=== PATIENT | female | born 1995 | race Caucasian/White ===

== ENCOUNTER → 2020-10-27 | Outpatient (CLI) | payer OTHER | LOC: KOH-I 16:00 | DX: S92.352A Displaced fracture of fifth metatarsal bone, left foot, initial encounter for closed fracture (principal) | CPT/HCPCS: 73630 ==

== ENCOUNTER → 2020-11-18 | Outpatient (CLI) | payer OTHER | LOC: KOH-I 16:00 | DX: S92.352A Displaced fracture of fifth metatarsal bone, left foot, initial encounter for closed fracture (principal) | CPT/HCPCS: 73630 ==

== ENCOUNTER 2021-02-28 12:53 | Emergency (ER) | payer OTHER | END 2021-02-28 14:01 | disposition home or self-care (01) | LOC: ER1 12:53 | DX: Z00.00 Encounter for general adult medical examination without abnormal findings (principal) | CPT/HCPCS: 99282 ==